=== PATIENT | male | born 1970 | race Caucasian/White ===

== ENCOUNTER 2019-04-04 17:58 | Inpatient (IN) | payer BC ==
[2019-04-04] MEDS ORDERED: NA CHLORIDE 0.9% 3,000 ML ONE (18:25)
[2019-04-04] MEDS ORDERED: ONDANSETRON 4 MG/2 ML VIAL ONE (18:26)
[2019-04-04 18:54] LABS: Absolute Lymphocytes (CBC) 1.3 K/uL (0.7-4.9); Basophils % 0.1 % (0-1.3); Hematocrit 45.6 % (39.6-49.0); Lymphocytes % 15.3 % (15.3-44.8); MPV 8.7 fL (7.6-11.3); RBC Red Blood Cell Count 4.95 M/uL (4.33-5.43)
[2019-04-04] MEDS ORDERED: ACETAMINOPHEN 500 MG TAB ONE (19:04)
[2019-04-04 19:05] LABS: Albumin 3.8 g/dL (3.4-5.0); Bilirubin Direct 0.2 mg/dL (0-0.2); Bilirubin Total 0.5 mg/dL (0.2-1.0); Potassium 3.3 mmol/L (3.5-5.1); Protein, Total 7.7 g/dL (6.4-8.2)
[2019-04-04] MEDS ORDERED: IBUPROFEN 400 MG TAB ONE (19:37)
--- NOTE | 2019-04-04 19:38 | RAD REPORT ---
EXAM DESCRIPTION: CTAbdomen Pelvis W Contrast - 04/04/2019 7:30 pm CLINICAL HISTORY: Abdominal pain. vomiting/diarrhea;Abd pain COMPARISON: <Comparisons> TECHNIQUE: Biphasic CT imaging of the abdomen and pelvis was performed with 100 ml non-ionic IV cont rast. All CT scans are performed using dose optimization technique as appropriate and may include automated exposure control or mA/KV adjustment according to patient size. FINDINGS: The lung bases are clear. The liver, spleen, pancreas, adrenal glands and kidneys are within normal limits. Multiple mildly prominent small bowel loops are seen in the mid abdomen probably representing enterit is. No free fluid or abscess. No free air. The appendix is normal. No evidence of significant lympha denopathy. No suspicious bony findings. IMPRESSION: Multiple mildly prominent and fluid-filled small bowel loops are seen in mid abdomen. Th is most likely is related to enteritis. Given that early mechanical obstruction can have a similar ap pearance, repeat imaging would be recommended clinical symptomology worsens.
--- NOTE | 2019-04-04 20:44 | EDPHYS ---
Physician Documentation [facility] Name: Jose Hinkle Age: 49 yrs Sex: Male : 1970 Arrival Date: 04/04/2019 Time: 18:02 Bed 5 Private MD: ED Physician Juancarlos Lopez HPI: 04/04 18:20 This 49 yrs old Male presents to ER via Ambulatory with complaints of Fever, rn Vomiting/Diarrhea, Fatigue. 18:20 The patient reports fever, not measured (subjective). Onset: The symptoms/episode rn began/occurred last night. Modifying factors: there are no obvious modifying factors. Associated signs and symptoms: Pertinent positives: abdominal pain, diarrhea, vomiting. Severity of symptoms: At their worst the symptoms were moderate in the emergency department the symptoms are unchanged. The patient has not experienced similar symptoms in the past. Reports last night began with abd pain, vomiting, diarrhea, non-bloody, feels tired and dehydrated. 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 Denies medical problems. No previous surgeries. Reports fatigue and vomiting are most troublesome symptoms.. Historical: - Allergies: 18:16 No Known Allergies; ch - Home Meds: 18:16 Prilosec OTC 20 mg oral TbEC [Active]; ch - PMHx: 18:16 GERD; ch - PSHx: 18:16 None; ch - Immunization history:: Adult Immunizations up to date, Flu vaccine is not up to date. - Social history:: Smoking status: Patient uses tobacco products, chewing tobacco. - Ebola Screening: : Patient negative for fever greater than or equal to 101.5 degrees Fahrenheit, and additional compatible Ebola Virus Disease symptoms Patient denies exposure to infectious person Patient denies travel to an Ebola-affected area in the 21 days before illness onset No symptoms or risks identified at this time. - Family history:: not pertinent. - Hospitalizations: : No recent hospitalization is reported. ROS: 18:20 Constitutional: + fever and chills Eyes: Negative for injury, pain, redness, and learning support aide, ENT: Negative for injury, pain, and discharge, Neck: Negative for injury, pain, and swelling, Cardiovascular: Negative for chest pain, palpitations, and edema, Respiratory: Negative for shortness of breath, cough, wheezing, and pleuritic chest pain, Abdomen/GI: + abd pain/nausea/vomiting/diarrhea MS/Extremity: Negative for injury and deformity, Skin: Negative for injury, rash, and discoloration, Neuro: Negative for headache, numbness, tingling, and seizure. Exam: 18:23 Constitutional: This is a well developed, well nourished patient who is awake, alert, rn and in no acute distress. Head/Face: Normocephalic, atraumatic. Eyes: Pupils equal round and reactive to light, extra-ocular motions intact. Lids and lashes normal. Conjunctiva and sclera are non-icteric and not injected. Cornea within normal limits. Periorbital areas with no swelling, redness, or edema. ENT: dry MM, no stridor or oral swelling Neck: Trachea midline, no thyromegaly or masses palpated, and no cervical lymphadenopathy. Supple, full range of motion without nuchal rigidity, or vertebral point tenderness. No Meningismus. Cardiovascular: tachycardic, regular, no murmur Respiratory: mild tachypnea with clear breath sounds, speaking full sentences Abdomen/GI: soft, + mild bilateral lower quadrant tenderness, no rebound. MS/ Extremity: Pulses equal, no cyanosis. Neurovascular intact. Full, normal range of motion. Equal circumference. Neuro: Awake and alert, GCS 15, oriented to person, place, time, and situation. Cranial nerves II-XII grossly intact. Motor strength 5/5 in all extremities. Sensory grossly intact. Cerebellar exam normal. 18:45 ECG was reviewed by the Attending Physician. rn Vital Signs: 18:16 BP 124 / 68; Pulse 122; Resp 20; Temp 101.7(O); Pulse Ox 96% on R/A; Pain 6/10; ch 18:38 Weight 90.72 kg (R); sg 18:43 BP 122 / 62; Pulse 100; Resp 16; Pulse Ox 98% on R/A; sg 19:15 BP 121 / 65; Pulse 75; Resp 17; Temp 102.4; Pulse Ox 100% ; Pain 8/10; rr5 20:00 BP 119 / 70; Pulse 82; Resp 19; Temp 101; Pulse Ox 99% ; rr5 21:00 BP 126 / 75; Pulse 79; Resp 17; Temp 99.3; Pulse Ox 99% ; rr5 MDM: 18:09 Patient medically screened. rn 20:39 Data reviewed: vital signs, nurses notes. Data interpreted: Pulse oximetry: on room air kb is 100 %. Interpretation: normal. Counseling: I had a detailed discussion with the patient and/or guardian regarding: the historical points, exam findings, and any diagnostic results supporting the discharge/admit diagnosis, lab results, radiology results, the need for further work-up and treatment in the hospital. Physician consultation: Lindsey Marion MD was contacted at 20:40, regarding admission, to the medical/surgical unit. patient's condition, and will see patient in ED, shortly. 20:40 ED course: CT report shows enteritis vs early mechanical bowel obstruction. Will admit kb for observation to be reevaluated in the morning for possible obstruction.. 04/04 18:19 Order name: Basic Metabolic Panel; Complete Time: 19:12 rn 04/04 18:19 Order name: CBC with Diff; Complete Time: 18:59 rn 04/04 18:19 Order name: Hepatic Function; Complete Time: 19:12 rn 04/04 18:19 Order name: Lipase; Complete Time: 19:12 rn 04/04 18:19 Order name: Flu; Complete Time: 20:43 rn 04/04 18:22 Order name: Blood Culture Adult (2) rn 04/04 18:22 Order name: Lactate; Complete Time: 19:12 rn 04/04 20:07 Order name: Urine Dipstick--Ancillary (enter results); Complete Time: 21:05 ar5 04/04 21:11 Order name: CBC with Automated Diff EDOH 04/04 21:11 Order name: CBC with Automated Diff EDOH 04/04 21:11 Order name: Comprehensive Metabolic Panel EDOH 04/04 21:11 Order name: Comprehensive Metabolic Panel EDMS 04/04 21:11 Order name: Magnesium EDMS 04/04 21:11 Order name: Magnesium EDMS 04/04 18:19 Order name: IV Saline Lock; Complete Time: 18:39 rn 04/04 18:19 Order name: Labs collected and sent; Complete Time: 18:39 rn 04/04 18:19 Order name: CT Abd/Pelvis - IV Contrast Only; Complete Time: 19:59 rn 04/04 21:11 Order name: CONS Physician Consult EDMS 04/04 21:11 Order name: CONS Physician Consult EDMS 04/04 21:11 Order name: NPO EDOH 04/04 21:11 Order name: Phosphorus EDOH 04/04 21:11 Order name: Phosphorus EDOH 04/04 21:12 Order name: Abdomen Acute Series EDOH EC:45 Rate is 102 beats/min. Rhythm is regular. QRS [place] is Normal. OR interval is normal. rn QRS interval is normal. QT interval is normal. No Q waves. T waves are Normal. No ST changes noted. Clinical impression: Sinus tachycardia. Interpreted by me. Reviewed by me. Administered Medications: 08:30 Drug: Zofran 4 mg Route: IVP; Site: right antecubital; sg 19:06 Follow up: Response: No adverse reaction; Nausea is decreased sg 18:30 Drug: NS 0.9% (30 ml/kg) 30 ml/kg Route: IV; Rate: bolus; Site: right antecubital; sg 21:26 Follow up: Response: No adverse reaction; IV Status: Completed infusion; IV Intake: rr5 2720ml 19:06 Drug: Tylenol 1000 mg Route: PO; sg 20:10 Follow up: Response: No adverse reaction; Marked relief of symptoms rr5 19:38 Drug: Ibuprofen 800 mg Route: PO; rr5 20:40 Follow up: Response: Temperature is decreased rr5 Disposition: 04/04/19 20:43 Hospitalization ordered by Lindsey Marion for Observation. Preliminary diagnosis are Lower abdominal pain, unspecified - enteritis vs SBO, Fever, unspecified. - Bed requested for Telemetry/MedSurg (observation). - Status is Observation. rr5 - Condition is Stable. - Problem is new. - Symptoms have improved. UTI on Admission? No Addendum: 04/06/2019 07:03 Co-signature as Attending Physician, Juancarlos Lopez MD. r n Signatures: Dispatcher [employer] [facility] Angle Haas, ELLI-Екатерина SAWYERP-Fela Carr, Guicho Woodall RN, ch, RN RN sg Nieto, Roman, MD MD rn Garcia, Cindy, RN RN cg Roque, Raymond RN RN rr5 Corrections: (The following items were deleted from the chart) 04/04 18:23 18:20 Constitutional: + fever and chills Eyes: Negative for injury, pain, redness, and learning support aide, rn 21: 20:43 Hospitalization Ordered by Lindsey Marion MD for Observation. Preliminary cg diagnosis is Lower abdominal pain, unspecified - enteritis vs SBO; Fever, unspecified. Bed requested for Telemetry/MedSurg (observation). Status is Observation. Condition is Stable. Problem is new. Symptoms have improved. UTI on Admission? No. kb 21:57 21:09 04/04/2019 20:43 Hospitalization Ordered by Lindsey Marion MD for Observation. rr5 Preliminary diagnosis is Lower abdominal pain, unspecified - enteritis vs SBO; Fever, unspecified. Bed requested for Telemetry/MedSurg (observation). Status is Observation. Condition is Stable. Problem is new. Symptoms have improved. UTI on Admission? No. cg
--- NOTE | 2019-04-04 20:44 | ER ---
Nurse's Notes [facility] Name: Jose Hinkle Age: 49 yrs Sex: Male : 1970 Arrival Date: 04/04/2019 Time: 18:02 Bed 5 Private MD: Diagnosis: Lower abdominal pain, unspecified-enteritis vs SBO;Fever, unspecified Presentation: 04/04 18:10 Presenting complaint: Patient states: c/o fever, vomiting, not feeling well at work ch yesterday, worse today. having bodyaches and cramping today. Transition of care: patient was not received from another setting of care. Onset of symptoms was April 03, 2019 at 09:00. Risk Assessment: Do you want to hurt yourself or someone else? Patient reports no desire to harm self or others. Initial Sepsis Screen: Does the patient meet any 2 criteria? Temp <36.0*C (96.8*F)) or > 38.3*C (100.9*F). HR > 90 bpm. Yes Does the patient have a suspected source of infection? Yes: Acute abdominal pain. Care prior to arrival: None. 18:10 Method Of Arrival: Ambulatory 18:10 Acuity: ANDREW 3 ch Triage Assessment: 18:16 General: Appears in no apparent distress. uncomfortable, ill, Behavior is cooperative, ch appropriate for age. Pain: Complains of pain in abdomen, generalized pain, headache. Historical: - Allergies: 18:16 No Known Allergies; - Home Meds: 18:16 Prilosec OTC 20 mg oral TbEC [Active]; - PMHx: 18:16 GERD; - PSHx: 18:16 None; - Immunization history:: Adult Immunizations up to date, Flu vaccine is not up to date. - Social history:: Smoking status: Patient uses tobacco products, chewing tobacco. - Ebola Screening: : Patient negative for fever greater than or equal to 101.5 degrees Fahrenheit, and additional compatible Ebola Virus Disease symptoms Patient denies exposure to infectious person Patient denies travel to an Ebola-affected area in the 21 days before illness onset No symptoms or risks identified at this time. - Family history:: not pertinent. - Hospitalizations: : No recent hospitalization is reported. Screenin:36 Abuse screen: Denies threats or abuse. Denies injuries from another. Nutritional sg screening: No deficits noted. Tuberculosis screening: No symptoms or risk factors identified. Never had TB. Fall Risk None identified. Assessment: 18:25 Reassessment: solution sales senior executive at bedside for a blood draw at this time, due to a code sg sepsis activation. 18:36 General: Appears in no apparent distress. well groomed, well developed, well nourished, sg Behavior is calm, cooperative, appropriate for age. Pain: Complains of pain in abdomen Quality of pain is described as aching. Neuro: Level of Consciousness is awake, alert, obeys commands, Oriented to person, place, time, Charting Clerk are equal bilaterally Moves all extremities. Speech is normal, Facial symmetry appears normal. Cardiovascular: Capillary refill is brisk in bilateral fingers Patient's skin is warm and dry. Chest pain is denied. Respiratory: Airway is patent Respiratory effort is even, unlabored, Respiratory pattern is regular, symmetrical. GI: Abdomen is round non-distended, Reports nausea, vomiting. : No signs and/or symptoms were reported regarding the genitourinary system. EENT: Nares are clear bilaterally Oral mucosa is moist. Throat is pink. Derm: Skin is pink, warm \T\ dry. Musculoskeletal: Circulation, motion, and sensation intact. Range of motion: intact in all extremities, Swelling absent. 19:15 General: Appears in no apparent distress. uncomfortable, well groomed, well developed, rr5 Behavior is calm, cooperative, appropriate for age. Pain: Complains of pain in head Pain does not radiate. Pain currently is 8 out of 10 on a pain scale. Quality of pain is described as aching, Pain began gradually, Is intermittent. Neuro: Level of Consciousness is awake, alert, obeys commands, Oriented to person, place, time, situation, Appropriate for age. Cardiovascular: Capillary refill < 3 seconds Patient's skin is warm and dry. Respiratory: Airway is patent Respiratory effort is even, unlabored, Respiratory pattern is regular, symmetrical. GI: Abdomen is round non-distended, Reports diarrhea, nausea, vomiting. 19:15 : No signs and/or symptoms were reported regarding the genitourinary system. EENT: No rr5 signs and/or symptoms were reported regarding the EENT system. Musculoskeletal: Circulation, motion, and sensation intact. Capillary refill < 3 seconds. 20:16 Reassessment: Patient appears in no apparent distress at this time. Patient is alert, rr5 oriented x 3, equal unlabored respirations, skin warm/dry/pink. ED provider spoke to patient advised admission and agreed for the plan of care. Patient states feeling better. Patient states symptoms have improved. 21:10 Reassessment: Patient appears in no apparent distress at this time. Patient is alert, rr5 oriented x 3, equal unlabored respirations, skin warm/dry/pink. back from X-ray no complaints made awaiting for room transfer. 21:20 Reassessment: spoke to hospitalist they want to talk to him and they prefer dr. kaylen english for the gastro referral if ever. Vital Signs: 18:16 BP 124 / 68; Pulse 122; Resp 20; Temp 101.7(O); Pulse Ox 96% on R/A; Pain 6/10; ch 18:38 Weight 90.72 kg (R); sg 18:43 BP 122 / 62; Pulse 100; Resp 16; Pulse Ox 98% on R/A; sg 19:15 BP 121 / 65; Pulse 75; Resp 17; Temp 102.4; Pulse Ox 100% ; Pain 8/10; rr5 20:00 BP 119 / 70; Pulse 82; Resp 19; Temp 101; Pulse Ox 99% ; rr5 21:00 BP 126 / 75; Pulse 79; Resp 17; Temp 99.3; Pulse Ox 99% ; rr5 ED Course: 18:02 Patient arrived in ED. as 18:09 Juancarlos Lopez MD is Attending Physician. rn 18:10 Fela Sparrow, RN is Primary Nurse. ch 18:11 Triage completed. ch 18:13 Guicho Johnson, RN is Primary Nurse. sg 18:15 Initial lab(s) drawn, by oil field laborer, sent to lab. First set of blood cultures drawn by lab staff. 18:16 Arm band placed on left wrist. Patient placed in an exam room, on a stretcher, on pulse ch oximetry, code sepsis called, lab at bedside, physician notified. 18:21 Radiology exam delayed due to lab results not completed at this time. (BUN/Creatinine) vm2 IV insertion attempt and/or patient not having appropriate IV at this time. 18:28 Second set of blood cultures drawn by wi. sg 18:28 Inserted saline lock: 20 gauge in left antecubital area, using aseptic technique. Blood sg collected. 18:46 Radiology exam delayed due to lab results not completed at this time. (BUN/Creatinine). vm2 18:59 Angle Haas [facility]-C [facility]. kb 19:00 Patient has correct armband on for positive identification. Bed in low position. Call rr5 light in reach. Side rails up X2. 19:31 CT Abd/Pelvis - IV Contrast Only In Process Unspecified. EDMS 20:42 Lindsey Marion MD is Hospitalizing Provider. kb 21:25 Repeat lab(s) drawn. by ED staff, sent to lab. repeat lactate. rr5 21:39 No provider procedures requiring assistance completed. Patient admitted, IV remains in rr5 place. intact, No redness/swelling at site. Administered Medications: 08:30 Drug: Zofran 4 mg Route: IVP; Site: right antecubital; sg 19:06 Follow up: Response: No adverse reaction; Nausea is decreased sg 18:30 Drug: NS 0.9% (30 ml/kg) 30 ml/kg Route: IV; Rate: bolus; Site: right antecubital; sg 21:26 Follow up: Response: No adverse reaction; IV Status: Completed infusion; IV Intake: rr5 2720ml 19:06 Drug: Tylenol 1000 mg Route: PO; sg 20:10 Follow up: Response: No adverse reaction; Marked relief of symptoms rr5 19:38 Drug: Ibuprofen 800 mg Route: PO; rr5 20:40 Follow up: Response: Temperature is decreased rr5 Intake: 21:26 IV: 2720ml; Total: 2720ml. rr5 Outcome: 20:43 Decision to Hospitalize by Provider. kb 21:39 Admitted to Tele accompanied by tech, via wheelchair, room 415, with chart, Report rr5 called to rey 21:39 Condition: stable 21:39 Instructed on the need for admit. 21:57 Patient left the ED. rr5 Signatures: Dispatcher [employer] EDMS Angle Haas FNP-C FNP-Ckb Hammond, Christina, RN RN ch Gay, Steven, RN RN sg Martinez, Amelia as Nieto, Roman, MD MD rn McGuire, Victoria [facility] Bush, Wang, RN RN rr5 Corrections: (The following items were deleted from the chart) 18:42 18:38 102.06 kg; sg sg
[2019-04-04] MEDS ORDERED: ACETAMINOPHEN 500 MG TAB PO PRN (20:54)
[2019-04-04] MEDS ORDERED: ONDANSETRON 4 MG/2 ML VIAL IV PRN (20:54)
[2019-04-04 21:02] LABS: Urine Blood NEGATIVE (NEG); Urine Glucose NEGATIVE (NEG); Urine Protein NEGATIVE (NEG)
[2019-04-04 22:27] VITALS: BMI 31.2
[2019-04-04] MEDS: Levofloxacin500mg IV 500 MG/100 ML BAG IV SCH (23:21)
[2019-04-04] MEDS: NA CHLORIDE 0.9% 1,000 ML IV SCH (23:22)
[2019-04-05] MEDS: METRONIDAZOLE 500mg IVPB 500 MG/100 ML BAG IV SCH ×4 (01:27→17:26)
[2019-04-05 06:16] LABS: Absolute Lymphocytes (CBC) 1.8 K/uL (0.7-4.9); Basophils % 0.1 % (0-1.3); Hematocrit 41.2 % (39.6-49.0); Lymphocytes % 27.2 % (15.3-44.8); MPV 8.4 fL (7.6-11.3); RBC Red Blood Cell Count 4.52 M/uL (4.33-5.43)
[2019-04-05 06:30] LABS: Bilirubin Total 0.5 mg/dL (0.2-1.0); Magnesium 2.1 mg/dL (1.8-2.4); Potassium 3.9 mmol/L (3.5-5.1); Protein, Total 6.4 g/dL (6.4-8.2)
[2019-04-05] MEDS ORDERED: POTASSIUM PHOS IN 0.9 % NACL 15 MMOL/250 ML BAG IV ONE (06:40)
--- NOTE | 2019-04-05 07:00 | P.HP ---
Certification for Inpatient Patient admitted to: Inpatient With expected LOS: >2 Midnights Patient will require the following post-hospital care: None Practitioner: I am a practitioner with admitting privileges, knowledge of patient current condition, hospital course, and medical plan of care. Services: Services provided to patient in accordance with Admission requirements found in Title 42 Section 412.3 of the Code of Federal Regulations Patient History Date of Service: 04/04/19 Reason for admission: Abdominal pain/enteritis versus small bowel obstruction History of Present Illness: Patient is a 49-year-old gentleman who came into the hospital with abdominal discomfort. Pain was mainly in the left lower quadrant & suprapubic region. Patient has been having intractable nausea and vomiting as well as diarrhea. Patient has had many sick contacts at work. He came into the emergency room because he felt like he was getting dehydrated. In the ER he is given IV fluids and anti emetics and clinically he started to feel better. His CT scan suggestive of questionable small-bowel obstruction. This is most likely enteritis especially with the symptoms he is having. He will need to be admitted to the hospital for further evaluation. Allergies No Known Allergies Allergy (Verified 04/05/19 01:52) Home Medications: Omeprazole [Prilosec] 40 mg PO DAILY 04/05/19 - Past Medical/Surgical History Has patient received pneumonia vaccine in the past: No Diabetic: No -: GERD - Family History Father Family History: Reviewed- Non-Contributory - Social History Smoking Status: Never smoker Place of Residence: Home Review of Systems 10-point ROS is otherwise unremarkable Physical Examination - Vital Signs Temperature: 97.6 F Blood Pressure: 107/63 Pulse: 82 Respirations: 16 Pulse Ox (%): 95 - Physical Exam General: Alert, In no apparent distress, Oriented x3 HEENT: Atraumatic, PERRLA, Mucous membr. moist/pink, EOMI, Sclerae nonicteric Neck: Supple, 2+ carotid pulse no bruit, No LAD, Without JVD or thyroid abnormality Respiratory: Clear to auscultation bilaterally, Normal air movement Cardiovascular: Regular rate/rhythm, Normal S1 S2, No murmurs Gastrointestinal: Normal bowel sounds, Soft and benign, Non-distended, Tenderness (Mild tenderness in the lower quadrants) Musculoskeletal: No tenderness Integumentary: No rashes Neurological: Normal gait, Normal speech, Normal strength at 5/5 x4 extr, Normal tone, Sensation intact, Cranial nerves 3-12 intact, Normal affect Lymphatics: No axilla or inguinal lymphadenopathy - Studies Laboratory Data (last 24 hrs) 04/04/19 18:25: WBC 8.3, Hgb 15.8, Hct 45.6, Plt Count 208 04/04/19 18:25: Sodium 138, Potassium 3.3 L, BUN 23 H, Creatinine 1.49 H, Glucose 108 H, Total Bilirubin 0.5, AST 17, ALT 41, Alkaline Phosphatase 87, Lipase 112 Microbiology Data (last 24 hrs): 04/04/19 20:14 Nasopharnyx Influenza Type A Antigen Screen - Final 04/04/19 20:14 Nasopharnyx Influenza Type B Antigen Screen - Final Assessment & Plan - Problems (Diagnosis) (1) Viral gastroenteritis Current Visit: Yes Status: Acute (2) Abdominal pain Current Visit: Yes Status: Acute (3) Small bowel obstruction Current Visit: Yes Status: Acute - Plan 1. Continue with IV hydration 2. Continue with IV antibiotics 3. Continue with pain control 4. Will repeat abdominal films in the morning. If no signs of small-bowel obstruction then will start clear liquid diet. If patient tolerates diet tomorrow and the obstruction has been ruled out patient should be able to go home tomorrow. Discharge Plan: Home Plan to discharge in: Greater than 2 days - Advance Directives Does patient have a Living Will: No Does patient have a Durable POA for Healthcare: No - Code Status/Comfort Care Code Status Assessed: Yes Code Status: Full Code Critical Care: No Time Spent Managing PTS Care (In Minutes): 45
--- NOTE | 2019-04-05 08:00 | RAD REPORT ---
EXAM DESCRIPTION: RAD - Abdomen Acute Series - 04/04/2019 9:37 pm CLINICAL HISTORY: abdominal pain COMPARISON: CHEST SINGLE VIEW dated 10/01/2012 FINDINGS: Lungs are clear. Heart size and pulmonary vasculature are normal. No pleural effusion, pne umothorax or other acute cardiopulmonary process seen. Bowel gas pattern is nonspecific. No bowel obstruction, free air or other acute findings. No suspicio us calcifications. No other suspicious for significant findings. No significant change from comparison. IMPRESSION: Negative acute abdomen series.
--- NOTE | 2019-04-05 08:24 | EKG ---
Test Date: 2019-04-04 Test Time: 18:30:31 Internet Network Specialist: ANUP MEASUREMENT RESULTS: Intervals: Rate: 102 MD: 158 QRSD: 94 QT: 320 QTc: 417 [place]: P: 49 MD: 158 QRS: 15 T: 44 INTERPRETIVE STATEMENTS: Sinus tachycardia Otherwise normal ECG Compared to ECG 10/01/2012 07:25:51 Sinus rhythm no longer present Electronically Signed On 04-05-19 08:24:05 CDT by Hemanth Garcia
[2019-04-05] MEDS ORDERED: POTASSIUM CL SA 10 MEQ TAB PO ONE (09:00)
[2019-04-05] MEDS: ENOXAPARIN 40 MG/0.4 ML SQ SCH (09:25)
[2019-04-05] MEDS: PANTOPRAZOLE 40MG TABLET PO SCH (13:58)
[2019-04-05] MEDS: NA CHLORIDE 0.9% 1,000 ML IV SCH ×2 (13:59→17:00)
--- NOTE | 2019-04-05 16:27 | PN ---
Date of Progress Note: 04/05/2019 Subjective: Patient seen and examined. Chart reviewed and case discussed with RN. Patient stating that he is hungry and still had multiple episodes of diarrhea overnight and some nausea. Medications: List reviewed. Physical Examination: Vital Signs: Temperature 97.6, heart rate 82 blood pressure 107/63, respirations 16, O2 of 95% on ro om air. General: Awake, alert, oriented x3. Some mild distress, slightly ill-appearing male. Obese. BMI 3 1. CV: S1, S2. Regular rate and rhythm. Peripheral pulses present. Respiratory: Moving air well bilaterally. No wheezing or stridor. No use of accessory muscles. Gastrointestinal: Abdomen is soft, nontender, nondistended. Hypoactive bowel sounds. No guarding o r rigidity. Extremities: No clubbing, cyanosis, or edema. Neurologic: Nonfocal. Laboratory Data: Sodium 143, potassium 3.9, chloride 109, CO2 of 27, BUN 16, creatinine 1.07, glucos e 98. Lactate is 1.5, calcium 7.7, phosphorus 2, albumin 3. WBC 6.5, H and H 14.8 and 41.2, platele ts 188, neutrophils 60%. C diff assay pending. Blood cultures are also pending. Influenza screen i s negative. Assessment: A 49-year-old male with: 1.Acute gastroenteritis, likely viral versus bacterial. We will obtain stool studies including C di ff, stool culture. 2.Generalized abdominal pain, improving, secondary to above. 3.Small bowel obstruction. Doubt true obstruction. Patient is awaiting evaluation by Dr. Robertson. Patient is able to pass gas, has had multiple episodes of diarrhea. We will start on clear liquid diet and monitor. 4.Obesity. BMI 31. 5.Hypocalcemia. Replace and monitor. 6.Hypophosphatemia. Replace and monitor. Plan: We will start him on clear liquids, conservative treatment. Follow up with surgical recommend ations, likely discharge in the next 24 hours. /[place] Voice ID: [id number] Report ID: [id number]
[2019-04-05] MEDS: Levofloxacin500mg IV 500 MG/100 ML BAG IV SCH (21:24)
--- NOTE | 2019-04-06 01:43 | CON ---
Date of Consultation: 04/05/2019 Brief History Of Present Illness: Patient is a 49-year-old gentleman, who came to the hosp ital with abdominal pain, which began a day and half prior. He said it was associated with intractab le nausea, vomiting, as well as diarrhea. He has had many sick contacts at work, but is unaware of a [place] significant transmission. He has had no recent travel. No new food exposures he is aware of. He felt like he was getting dehydrated. He came to the ER with the above-stated complaints. Past Medical History: Significant for GERD. Past Surgical History: Negative. Allergies: NO KNOWN DRUG ALLERGIES. Medications: He takes fish oil, omeprazole, and Tylenol p.r.n. Family History: Reviewed, noncontributory. Social History: He denies smoking but does chew tobacco for 40 years. Denies alcohol or recreationa l drug use. Review of Systems: A 10-point review of systems other than HPI. Physical Examination: Vital Signs: At the time of my examination, his BMI is approximately 31. His temperature 97.6, resp iratory rate 16, pulse 82, blood pressure is 107/63. General: He is awake, alert, oriented. Psychiatric: Appropriate and conversive. HEENT: Normocephalic. Sclerae icteric. Mucosa membranes are moist. Oropharynx clear. Neck: Supple. No JVD. Chest: Normal expansion and excursion. Cardiovascular: Regular rate and rhythm. Pulmonary: Clear to auscultation bilaterally. Abdomen: Soft, nontender, nondistended. No rebound. No guarding. No focal peritonitis. Negative for hernias. Completely benign abdominal exam. No scars evident. Extremities: No clubbing, cyanosis, or edema. Skin: Warm, dry. Laboratory Data: Reveals a white blood count 6.5, hemoglobin is 14.8, hematocrit of 41.2, platelet c ount is 188. Neutrophils normal at 60%. Sodium is 143, potassium 3.9, chloride 109, carbon dioxide 27, BUN 16, creatinine is 1.07, glucose 98, lactic acid is 1.5 on admission, phosphorus is 2.0, magne sium 2.1, total bilirubin 0.5, AST 18, ALT 36, alkaline phosphatase 70. His lipase is 112 on admissi on. UA was negative. He had several imaging studies performed including acute abdominal series, whi ch was read by Dr. Howell, officially read as negative acute abdominal series. He had a followup CT scan of the abdomen and pelvis, which is officially read by Dr. Llanes as multiple mildly prominent an d fluid-filled small bowel loops are seen in the mid abdomen. This most likely is related to enterit is. Given that early mechanical obstruction of similar appearance, repeated imaging would be recomme nded clinically if symptomatology worsens. Assessment And Plan: This is a 49-year-old male, who has a resolving/resolved small bowel enteritis. 1.IV fluid hydration. 2.Serial abdominal exams. 3.Advance diet from clear liquid diet to regular diet. If patient tolerates, okay to discharge from a surgical standpoint. Also, patient should have follow up with Gastroenterology and Primary Care em [facility] upon discharge. PATRICK/[place] Voice ID: [id number] Report ID: [id number]
[2019-04-06] MEDS: NA CHLORIDE 0.9% 1,000 ML IV SCH (03:00)
[2019-04-06] MEDS: METRONIDAZOLE 500mg IVPB 500 MG/100 ML BAG IV SCH ×2 (06:00)
[2019-04-06 06:39] LABS: Potassium 3.8 mmol/L (3.5-5.1)
[2019-04-06 08:20] VITALS: BP 130/62; TEMP 97.6
[2019-04-06 08:33] VITALS: O2SAT 98
[2019-04-06] MEDS: PANTOPRAZOLE 40MG TABLET PO SCH (08:34)
[2019-04-06] MEDS: ENOXAPARIN 40 MG/0.4 ML SQ SCH (08:34)
[2019-04-06] MEDS ORDERED: POTASSIUM CL SA 10 MEQ TAB PO ONE (09:00)
--- NOTE | 2019-04-07 04:35 | DS ---
Date of Discharge: 04/06/2019 Consultants: Dr. Winslow with General Surgery. Procedures: None. Admitting Diagnoses: 1.Viral gastroenteritis. 2.Small-bowel obstruction. 3.Acute generalized abdominal pain. Discharge Diagnoses: 1.Acute gastroenteritis, likely viral versus bacterial. 2.Generalized abdominal pain, resolved. 3.Small-bowel obstruction, resolved. 4.Obesity, body mass index 31. 5.Hypocalcemia. 6.Hypophosphatemia, replaced. 7.Acute kidney injury, resolved. 8.Metabolic acidosis, resolved. Hospital Course: Patient is a 49-year-old male with no significant past medical history other than G ERD, on Prilosec, comes in with diarrhea, abdominal pain, nausea, vomiting. Patient did have ill con tacts. He was found to have viral or bacterial gastroenteritis. CT scan was suggestive of questiona ble small-bowel obstruction. Patient was evaluated by Dr. Winslow of General Surgery. Dr. Robertson was initially consulted, however, patient did not appear on his list. He was unable to evaluate the patient and Dr. Winslow was on-call that day and was consulted. Patient was started on a clear liqui d diet. He was able to tolerate his diet and was advanced to regular which he was able to tolerate w ithout any difficulty. Patient was able to ambulate; did not have any further nausea, vomiting, or d iarrhea. Stool studies for C diff were negative. Patient also had dehydration with acute kidney inj ury which resolved with IV fluids. Patient did well overall. His vital signs remained stable. Bloo d cultures did not show any growth to date. Patient was then able to tolerate his diet and symptoms had resolved. He was discharged in a stable condition. Activity: As tolerated. Medications: As per medication reconciliation list. Followup: Follow up with Dr. Winslow, general surgeon, in 1-2 weeks. Patient will need a colonoscop y and EGD to rule out inflammatory bowel disease. Once condition is improved, patient to follow up w ith his primary care physician in 2-3 days, return to ER for worsening condition. Diet: Calorie-reduced diet. Activity: As tolerated. Physical Examination: General: Awake, alert, oriented x3, obese male. CV: S1, S2. No murmurs. Respiratory: Moving air well bilaterally. Abdomen: Soft, nontender, nondistended. Positive bowel sounds. Extremities: No clubbing, cyanosis, or edema. Neurologic: Nonfocal. Time Spent: Total time spent discharging patient was 35 minutes. FLORINDA Voice ID: [id number] Report ID: [id number]
== END 2019-04-06 09:20 | disposition home or self-care (01) | DRG 392 ==
LOC: ER 17:58 → ERHOLD 20:54 → 4TH 21:42
PROVIDERS: ADMIT Hospitalist; ATTEND Hospitalist
DX: K52.9 Noninfective gastroenteritis and colitis, unspecified (principal); K56.609 Unspecified intestinal obstruction, unspecified as to partial versus complete obstruction; N17.9 Acute kidney failure, unspecified; E87.2 Acidosis; E66.9 Obesity, unspecified; Z68.31 Body mass index [BMI] 31.0-31.9, adult; E83.51 Hypocalcemia; E83.39 Other disorders of phosphorus metabolism
CPT/HCPCS: 36415; 74022; 74177; 80048; 80053; 80076; 81003; 83605; 83690; 83735; 84100; 85025; 87040; 87493; 87804; 93005; 96365; 96366; 96375; 99285; J1650; J2405; J7030; Q9967